=== PATIENT | female | born 1970 | race Caucasian/White ===

== ENCOUNTER 2017-03-19 11:40 | Emergency (ER) | payer SELFPAY ==
[2017-03-19] MEDS ORDERED: KETOROLAC 30 MG/1 ML SDV IVP ONE (12:12)
[2017-03-19] MEDS ORDERED: ONDANSETRON 4 MG/2 ML VIAL IVP ONE ×2 (12:12→14:45)
[2017-03-19] MEDS ORDERED: NS 1,000 ML IV ONE ×2 (12:12→13:05)
--- NOTE | 2017-03-19 12:12 | EDPHY ---
H & P Time Seen by Provider: 03/19/17 11:53 HPI/ROS: Chief complaint. Abdominal pain, vomiting, diarrhea HPI. 46-year-old female with generalized abdominal pain and vomiting that started this morning. Vomiting and diarrhea. Pain is "everywhere" in her abdomen and no difference between left and right side or top and bottom of abdomen. It is described as constant and dull. Somewhat worse with movement. She notes similar symptoms previously and she describes it as an endometriosis flare. She has urinary frequency. She has chest pain and shortness of breath that she thinks is secondary to a chemical exposure here in the emergency department. Chills but no fever. ROS Constitutional. Chills Eyes. no problems with vision ENT. no sore throat, no nasal drainage Cardiovascular. Chest pain Respiratory. Shortness of breath Abdominal. Abdominal pain with vomiting and diarrhea . Urinary frequency MS. no calf pain/swelling, no neck/back pain, no joint pain Skin. no rash Lymph. no swollen glands Neuro. no headache, no dizziness, no difficulty walking or with speech Past Medical/Surgical History: Endometriosis and chemical sensitive Social History: Single, daily smoker, no alcohol. Patient lives in her Smoking Status: Current some day smoker Physical Exam: General Appearance: Alert well-developed female mild distress vital signs are stable Eyes: Pupils equal and round no pallor or injection. ENT, Mouth: Mucous membranes are moist. Respiratory: There are no retractions, lungs are clear to auscultation. Cardiovascular: Regular rate and rhythm. Gastrointestinal: Abdomen is soft and generally tender. No masses. Normal bowel sounds Neurological: Awake and alert, sensory and motor exams grossly normal. Skin: Warm and dry, no rashes. Musculoskeletal: Neck is supple nontender. Extremities symmetrical, full range of motion. Psychiatric: Patient is oriented X 3, there is no agitation. Constitutional: Initial Vital Signs Temperature (C) 36.4 C 03/19/17 11:45 Heart Rate 59 L 03/19/17 11:45 Respiratory Rate 20 03/19/17 11:45 Blood Pressure 83/58 L 03/19/17 11:45 O2 Sat (%) 98 03/19/17 11:45 O2 Delivery Mode Room Air Allergies/Adverse Reactions: aspirin Allergy (Verified 03/19/17 11:44) codeine Allergy (Verified 03/19/17 11:44) Home Medications: Medication Instructions Recorded Promethazine HCl [Phenergan 25mg 25 mg PO Q4-6PRN PRN #14 tab 03/19/17 (*)] Zofran Odt 03/19/17 Medical Decision Making - Diagnostics Imaging Results: Imaging Impressions Chest X-Ray 03/19/17 12:15 Impression: Clear lungs. No acute process. Chest x-ray interpreted by me is normal Procedures: IV normal saline. Zofran and Toradol ED Course/Re-evaluation: past records reviewed in [facility]--normal CT scan of abdomen and pelvis for same condition in October 2016 re-check 12:50 pm--patient improved but complains of continued nausea and abdominal pain. Re-evaluation at 2:15 p.m.. Patient is stable and improved. Slight loss nausea but no vomiting. She and I discussed elevated white blood cell count and she tells me this was the same last time and that the CT was normal and does not wish further imaging. Patient and I discussed lab results, treatment plan including criteria for return importance of follow-up. She expresses understanding and agreement Differential Diagnosis: I considered acute abdomen such as urinary tract infection, pyelonephritis, diverticulitis. The patient feels that this is consistent with her usual endometrial flare and menstrual cramps. - Data Points Laboratory Results: Laboratory Results 03/19/17 12:03 03/19/17 12:03 03/19/17 03/19/17 03/19/17 12:14 12:03 12:03 WBC 14.60 10^3/uL H 10^3/uL (3.80-9.50) RBC 4.67 10^6/uL 10^6/uL (4.18-5.33) Hgb 14.6 g/dL g/dL (12.6-16.3) Hct 42.8 % % (38.0-47.0) MCV 91.6 fL fL (81.5-99.8) MCH 31.3 pg pg (27.9-34.1) MCHC 34.1 g/dL g/dL (32.4-36.7) RDW 12.5 % % (11.5-15.2) Plt Count 335 10^3/uL 10^3/uL (150-400) MPV 10.7 fL fL (8.7-11.7) Neut % (Auto) 88.9 % H % (39.3-74.2) Lymph % (Auto) 7.4 % L % (15.0-45.0) [place] % (Auto) 2.7 % L % (4.5-13.0) Eos % (Auto) 0.1 % L % (0.6-7.6) Baso % (Auto) 0.3 % % (0.3-1.7) Nucleat RBC Rel Count 0.0 % % (0.0-0.2) Absolute Neuts (auto) 12.98 10^3/uL H 10^3/uL (1.70-6.50) Absolute Lymphs (auto) 1.08 10^3/uL 10^3/uL (1.00-3.00) Absolute Monos (auto) 0.39 10^3/uL 10^3/uL (0.30-0.80) Absolute Eos (auto) 0.01 10^3/uL L 10^3/uL (0.03-0.40) Absolute Basos (auto) 0.05 10^3/uL 10^3/uL (0.02-0.10) Absolute Nucleated RBC 0.00 10^3/uL 10^3/uL (0-0.01) Immature Gran % 0.6 % % (0.0-1.1) Immature Gran # 0.09 10^3/uL 10^3/uL (0.00-0.10) Sodium 138 mEq/L mEq/L (134-144) Potassium 3.8 mEq/L mEq/L (3.5-5.2) Chloride 108 mEq/L mEq/L (97-110) Carbon Dioxide 20 mEq/l L mEq/l (22-31) Anion Gap 10 mEq/L mEq/L (8-16) BUN 16 mg/dL mg/dL (7-23) Creatinine 0.7 mg/dL mg/dL (0.6-1.0) Estimated GFR > 60 Glucose 144 mg/dL H mg/dL (70-100) Calcium 9.6 mg/dL mg/dL (8.5-10.4) Troponin I < 0.012 ng/mL ng/mL (0-0.034) Beta HCG, Qual NEGATIVE Medications Given: Discontinued Medications Sodium Chloride (Ns) 1,000 mls @ 0 mls/hr IV ONCE ONE; Wide Open PRN Reason: Protocol Stop: 03/19/17 12:13 Last Admin: 03/19/17 12:16 Dose: 1,000 mls Sodium Chloride (Ns) 1,000 mls @ 0 mls/hr IV ONCE ONE; Wide Open PRN Reason: Protocol Stop: 03/19/17 13:06 Last Admin: 03/19/17 13:33 Dose: 1,000 mls Ketorolac Tromethamine (Toradol) 30 mg IVP EDNOW ONE Stop: 03/19/17 12:13 Last Admin: 03/19/17 12:21 Dose: 30 mg Ondansetron HCl (Zofran) 4 mg IVP EDNOW ONE Stop: 03/19/17 12:13 Last Admin: 03/19/17 12:21 Dose: 4 mg Ondansetron HCl (Zofran) 4 mg IVP Q15M PRN PRN Reason: Nausea/Vomiting, Can't Take PO Stop: 03/19/17 13:20 Last Admin: 03/19/17 13:35 Dose: 4 mg Departure - Departure Disposition: Home, Routine, Self-Care Clinical Impression: Abdominal pain Qualifiers: Abdominal location: generalized Qualified Code(s): R10.84 - Generalized abdominal pain Condition: Good Instructions: Abdominal Pain (ED) Additional Instructions: Ibuprofen 600 mg every 6 hours for discomfort. Phenergan as needed for nausea and vomiting. Return for worsening symptoms. Recheck in 1-2 days if not improved. I will also give you the name of local physician to arrange outpatient follow-up. Referrals: NONE *PRIMARY CARE P,. [Primary Care Provider] - As per Instructions Prescriptions: Promethazine HCl [Phenergan 25mg (*)] 25 mg PO Q4-6PRN PRN #14 tab PRN Reason: Nausea/Vomiting, Use 1st
[2017-03-19 12:21] LABS: % IMMATURE GRANULYOCYTES 0.6 % (0.0-1.1); ABSOLUTE IMMATURE GRANULOCYTES 0.09 10^3/uL (0.00-0.10); ADD DIFF? NO; ADD MORPH? NO; ADD SCAN? NO; ATYPICAL LYMPHOCYTE FLAG 10 (0-99); FRAGMENT RBC FLAG 0 (0-99); HEMATOCRIT 42.8 % (38.0-47.0); HEMOGLOBIN 14.6 g/dL (12.6-16.3); LEFT SHIFT FLG 10 (0-99); LIPEMIA HEMOLYSIS FLAG 90 (0-99); MEAN CELL HEMOGLOBIN 31.3 pg (27.9-34.1); MEAN CELL HEMOGLOBIN CONCENTR. 34.1 g/dL (32.4-36.7); MEAN CELL VOLUME 91.6 fL (81.5-99.8); MEAN PLATELET VOLUME 10.7 fL (8.7-11.7); PLATELET CLUMPS FLAG 0 (0-99); PLATELET COUNT 335 10^3/uL (150-400); RED BLOOD CELL COUNT 4.67 10^6/uL (4.18-5.33); RED CELL DISTRIBUTION WIDTH 12.5 % (11.5-15.2)
[2017-03-19 12:44] LABS: ANION GAP 10 mEq/L (8-16); CALCIUM 9.6 mg/dL (8.5-10.4); CARBON DIOXIDE 20 mEq/l (22-31); CHLORIDE 108 mEq/L (97-110); CREATININE 0.7 mg/dL (0.6-1.0); GLOMERULAR FILTRATION RATE > 60; GLUCOSE 144 mg/dL (70-100); POTASSIUM 3.8 mEq/L (3.5-5.2); SODIUM 138 mEq/L (134-144)
[2017-03-19 12:57] LABS: TROPONIN I < 0.012 ng/mL (0-0.034)
[2017-03-19] MEDS ORDERED: ONDANSETRON 4 MG/2 ML VIAL IVP PRN (13:04)
[2017-03-19] MEDS ORDERED: ONDANSETRON 4 MG/2 ML VIAL ONE ×2 (13:31→14:43)
[2017-03-19 14:49] VITALS: RESP 16; TEMP 98.2; O2SAT 95
[2017-03-19 15:47] VITALS: BP 115/71; PULSE 59
== END 2017-03-19 15:47 | disposition home or self-care (01) ==
DX: R10.84 Generalized abdominal pain (principal); F17.200 Nicotine dependence, unspecified, uncomplicated
CPT/HCPCS: 96374; J1885; J2405